=== PATIENT | female | born 1995 | race Caucasian/White ===

== ENCOUNTER 2016-06-25 19:33 | Emergency (ER) | payer MEDICAID | END 2016-06-25 22:34 | disposition left against medical advice (07) | LOC: EMS 19:35 | DX: K08.89 Other specified disorders of teeth and supporting structures (principal); Z53.21 Procedure and treatment not carried out due to patient leaving prior to being seen by health care provider ==

== ENCOUNTER 2018-07-22 10:24 | Emergency (ER) | payer MEDICAID, OTHER ==
[~2018-07-22] VITALS: Ht 162.6 cm; Wt 80.0 kg
[2018-07-22 10:33] VITALS: BP 140/92
[2018-07-22] MEDS ORDERED: KETOROLAC TROMETHAMINE 30 MG/ML VIAL IM ONE (12:15)
== END 2018-07-22 12:22 | disposition home or self-care (01) ==
LOC: EMS 10:24
DX: S19.9XXA Unspecified injury of neck, initial encounter (principal); S59.912A Unspecified injury of left forearm, initial encounter; V43.52XA Car driver injured in collision with other type car in traffic accident, initial encounter; Y93.89 Activity, other specified; Y92.89 Other specified places as the place of occurrence of the external cause; Y99.8 Other external cause status
CPT/HCPCS: 96372; 99283; J1885